=== PATIENT | male | born 1960 | race Caucasian/White ===

== ENCOUNTER 2017-07-22 14:41 | Emergency (ER) | payer SELFPAY ==
[2017-07-22 14:52] VITALS: BP 125/88; PULSE 82; TEMP 98.3; BMI 33.4
--- NOTE | 2017-07-22 15:24 | PDOC ---
*Physical Exam - Vital Signs Last Vital Signs Temp Pulse Resp BP Pulse Ox 98.3 F 82 16 125/88 100 07/22/17 14:50 07/22/17 14:50 07/22/17 14:50 07/22/17 14:50 07/22/17 14:50 ED Treatment Course - LABORATORY CBC & Chemistry Diagram: 07/22/17 15:46 07/22/17 15:46 Medical Decision Making - Medical Decision Making 07/22/17 15:27 The patient was seen and evaluated in conjunction with MARIAM Anderson under my direct supervision, ancillary studies were reviewed. I independently interviewed and evaluated the patient and I agree with the plan as outlined by MARIAM Anderson. *DC/Admit/Observation/Transfer Diagnosis at time of Disposition: Gout of left knee - Discharge Dispostion Disposition: HOME Condition at time of disposition: Improved - Prescriptions Prescriptions: Oxycodone HCl/Acetaminophen [Percocet 5-325 mg Tablet] 1 - 2 tab PO Q6H PRN #12 tab MDD 4 PRN Reason: Pain - Referrals - Patient Instructions Printed Discharge Instructions: DI for Gout Additional Instructions: Please take Percocet for the pain and read over instructions on gout. Please also follow up with her primary care physician. If symptoms worsen despite above recommendations please return to the nearest emergency room. - Post Discharge Activity
[2017-07-22] MEDS ORDERED: COLCHICINE 0.6 MG TABLET (FP) PO ONE ×2 (15:38→17:27)
[2017-07-22] MEDS ORDERED: COLCHICINE 0.6 MG TABLET (FP) ONE ×2 (15:47→17:31)
[2017-07-22 16:07] LABS: BASO % 0.4 % (0-2.0); EOS % 3.1 % (0-4.5); HEMOGLOBIN 12.8 GM/dL (11.7-16.9); LYMPH % 16.5 % (8-40); MCH 27.3 pg (25.7-33.7); MCHC 33.7 g/dl (32.0-35.9); MEAN CELL VOLUME 81.1 fl (80-96); MEAN PLT VOLUME 7.6 fl (7.5-11.1); MONO % 13.5 % (3.8-10.2); NEUT % 66.5 % (42.8-82.8); PLATELET COUNT 183 K/MM3 (134-434); RBC 4.69 M/mm3 (4.00-5.60); RDW 13.8 % (11.9-15.9)
--- NOTE | 2017-07-22 16:32 | PDOC ---
History of Present Illness - General Chief Complaint: Pain, Acute Stated Complaint: LEFT FOOT GOUT PAIN Time Seen by Provider: 07/22/17 15:04 History Source: Patient Exam Limitations: No Limitations - History of Present Illness Initial Comments: 07/22/17 16:16 57-year-old male with history of gout presents the ED with complaints of left knee pain for the past 3 days without with the retractors. Patient went to [facility] today with a gave him Motrin and discharge him home with the same but states symptoms have not improved and wants something stronger such as colchicine. Patient is currently on allopurinol which she's been on for years secondary to frequent gout attacks. Patient denies fever, chills, history of arthritis, knee injury, posterior knee pain, or calf pain. Timing/Duration: constant Severity: moderate Associated Symptoms: reports: denies symptoms Past History - Travel Traveled outside of the country in the last 30 days: No - Past Medical History Allergies/Adverse Reactions: Allergies Allergy/AdvReac Type Severity Reaction Status Date / Time No Known Allergies Allergy Verified 07/22/17 14:52 Home Medications: Ambulatory Orders Allopurinol [Zyloprim -] 300 mg PO BID 07/22/17 Meloxicam 15 mg PO PRN 07/22/17 Oxycodone HCl/Acetaminophen [Percocet 5-325 mg Tablet] 1 - 2 tab PO Q6H PRN #12 tab MDD 4 07/22/17 COPD: No Other medical history: GOUT - Suicide/Smoking/Psychosocial Hx Smoking History: Never smoked Have you smoked in the past 12 months: No Information on smoking cessation initiated: No Hx Alcohol Use: No Drug/Substance Use Hx: No Substance Use Type: None Patient Lives Alone: No Lives with/in: spouse/SO Review of Systems - Review of Systems Able to Perform ROS?: Yes Constitutional: No: Symptoms Reported Respiratory: No: Symptoms reported ABD/GI: No: Symptoms Reported Musculoskeletal: Yes: Joint Pain (eft knee), Joint Swelling (left knee) Integumentary: Yes: Erythema (mild) Neurological: No: Symptoms reported Endocrine: No: Symptoms Reported *Physical Exam - Vital Signs Last Vital Signs Temp Pulse Resp BP Pulse Ox 98.3 F 82 16 125/88 100 07/22/17 14:50 07/22/17 14:50 07/22/17 14:50 07/22/17 14:50 07/22/17 14:50 - Physical Exam General Appearance: Yes: Nourished, Appropriately Dressed. No: Apparent Distress Vascular Pulses: Doralis-Pedis (L): 2+ Extremity: positive: Normal Capillary Refill, Normal Range of Motion, Tender ( over anterior aspect of left patella). negative: Normal Inspection (noted erythema and edema along with increased warmth over the left anterior patella) , Calf Tenderness Integumentary: positive: Erythema, Swelling Neurologic: positive: Motor Strength 5/5 (ambulatory) ED Treatment Course - LABORATORY CBC & Chemistry Diagram: 07/22/17 15:46 07/22/17 15:46 - RADIOLOGY Radiology Studies Ordered: Category Date Time Status KNEE 3 POS-LEFT [RAD] Stat Radiology 07/22/17 15:38 Ordered - Medications Given in the ED: ED Medications Discontinued Medications Generic Name Dose Route Start Last Admin Trade Name Freq PRN Reason Stop Dose Admin Colchicine 1.2 mg 07/22/17 15:38 07/22/17 15:54 Colcrys - PO 07/22/17 15:39 1.2 mg ONCE ONE Administration Oxycodone/Acetaminophen 1 combo 07/22/17 15:38 07/22/17 15:54 Percocet 5/325 - PO 07/22/17 15:39 1 combo ONCE ONE Administration Medical Decision Making - Medical Decision Making 07/22/17 17:08 Patient here for evaluation of gout attack. Patient exam with erythematous warm and edematous left patella. Differential diagnosis: Gout Fracture Septic joint Orders CBC, comp, uric acid, CRP the x-ray, colchicine and Percocet 07/22/17 17:19 Laboratory Tests 07/22/17 07/22/17 15:46 15:46 WBC 5.0 Hgb 12.8 Hct 38.0 Plt Count 183 Neutrophils % 66.5 D Sodium 138 Potassium 4.2 Chloride 103 Carbon Dioxide 24 Anion Gap 11 BUN 18 Creat Clearance w eGFR > 60 Random Glucose 151 H Uric Acid 2.7 Calcium 8.1 L Total Bilirubin 0.9 D AST 53 H D ALT 76 D Alkaline Phosphatase 141 H C-Reactive Protein 17.9 H Total Protein 6.8 Albumin 3.3 L X-ray of the knee negative for acute findings. We'll reevaluate 03/24/18 17:28 Patient states feeling better and will receive a second dose of colchicine. Patient be discharged home with Percocet and told to continue with his follow- up urinal along with following up with his primary care physician *DC/Admit/Observation/Transfer Diagnosis at time of Disposition: Gout of left knee Qualifiers: Gout etiology: unspecified cause Chronicity: acute Qualified Code(s): M10.9 - Gout, unspecified - Discharge Dispostion Disposition: HOME Condition at time of disposition: Improved - Prescriptions Prescriptions: Oxycodone HCl/Acetaminophen [Percocet 5-325 mg Tablet] 1 - 2 tab PO Q6H PRN #12 tab MDD 4 PRN Reason: Pain - Referrals - Patient Instructions Printed Discharge Instructions: DI for Gout Additional Instructions: Please take Percocet for the pain and read over instructions on gout. Please also follow up with her primary care physician. If symptoms worsen despite above recommendations please return to the nearest emergency room. - Post Discharge Activity
[2017-07-22 16:56] LABS: ALBUMIN 3.3 g/dl (3.4-5.0); ANION GAP 11 (8-16); BLOOD UREA NITROGEN 18 mg/dL (7-18); CALCIUM 8.1 mg/dL (8.5-10.1); CHLORIDE 103 mmol/L (98-107); CO2 24 mmol/L (21-32); CREATININE 0.9 mg/dL (0.7-1.3); GLUCOSE,RANDOM 151 mg/dL (74-106); POTASSIUM 4.2 mmol/L (3.5-5.1); SGOT/AST 53 U/L (15-37); SGPT/ALT 76 U/L (12-78); SODIUM 138 mmol/L (136-145); URIC ACID 2.7 mg/dL (2.6-7.2)
[2017-07-22 16:58] LABS: ALK PHOS 141 U/L (45-117); BILIRUBIN,TOTAL 0.9 mg/dL (0.2-1.0); TOT PROT 6.8 g/dl (6.4-8.2)
== END 2017-07-22 17:39 | disposition home or self-care (01) ==
LOC: JER 14:41
DX: M10.9 Gout, unspecified (principal); L54 Erythema in diseases classified elsewhere
CPT/HCPCS: 36415; 73562-TC-LT-FY; 80053; 84550; 85025; 86140; 99282-25